=== PATIENT | female | born 1965 | race American Indian/Alaskan Native ===

== ENCOUNTER 2017-10-14 11:24 | Emergency (ER) | payer SELFPAY ==
[2017-10-14] MEDS ORDERED: MOTRIN PO ONE (17:43)
[2017-10-14] MEDS ORDERED: ZESTRIL ONE (17:49)
[2017-10-14] MEDS ORDERED: LOPRESSOR ONE (17:50)
[2017-10-14] MEDS ORDERED: ZESTRIL PO ONE (17:50)
[2017-10-14] MEDS ORDERED: LOPRESSOR PO ONE (17:50)
--- NOTE | 2017-10-14 19:08 | Emergency Department Report ---
ED Lower Extremity HPI - General Chief Complaint: Extremity Injury, Lower Stated Complaint: RT LEG PAIN Time Seen by Provider: 10/14/17 18:37 Source: patient Mode of arrival: Wheelchair Limitations: No Limitations - History of Present Illness Initial Comments: This is a 52-year-old -[place] female who presents with right lower extremity pain and numbness to right foot. Past medical history of hypertension. She states symptoms started last week and has progressed. Initially both feet were swollen last week. Patient states swelling has improved this week. Patient states pain is primarily in her right thigh but at times worse in right ankle and foot. She describes pain as a tingling sensation that is worse with movement. Patient denies swelling, deformity, erythema, recent injury. MD Complaint: ankle injury, foot injury Onset/Timin -: week(s) Injury: Thigh: Right, Ankle: Right, Foot: Right Type of Injury: unknown Place: home Severity: severe Severity scale (0 -10): 10 Improves With: nothing Worsens With: weight bearing, movement Associated Symptoms: swelling, able to partially bear weight, ambulatory. denies: snap/pop sensation, numbness, tingling, unable to bear weight Treatments Prior to Arrival: NSAIDS - Related Data Home Medications Medication Instructions Recorded Confirmed Last Taken Lisinopril [Zestril TAB] 10 mg PO QDAY 10/14/17 10/14/17 Unknown Metoprolol [Lopressor] 25 mg PO DAILY 10/14/17 10/14/17 Unknown Previous Rx's Medication Instructions Recorded Last Taken Type Cyclobenzaprine [Flexeril 10 MG 10 mg PO TID PRN #15 tablet 10/14/17 Unknown Rx TAB] Ibuprofen [Motrin 800 MG tab] 800 mg PO Q8HR PRN #15 tablet 10/14/17 Unknown Rx Allergies Allergy/AdvReac Type Severity Reaction Status Date / Time hydroxyzine [From Atarax] Allergy Hives Verified 10/14/17 11:31 ED Review of Systems ROS: Stated complaint: RT LEG PAIN Other details as noted in HPI Constitutional: denies: chills, fever Respiratory: denies: cough, shortness of breath, wheezing Cardiovascular: denies: chest pain, palpitations Gastrointestinal: denies: abdominal pain, nausea, diarrhea Musculoskeletal: arthralgia (right lower extremity pain). denies: back pain, joint swelling Skin: denies: rash, lesions Neurological: denies: headache, weakness, paresthesias Psychiatric: denies: anxiety, depression ED Past Medical Hx - Past Medical History Hx Hypertension: Yes - Surgical History Past Surgical History?: No - Social History Smoking Status: Never Smoker - Medications Home Medications: Home Medications Medication Instructions Recorded Confirmed Last Taken Type Cyclobenzaprine [Flexeril 10 MG 10 mg PO TID PRN #15 tablet 10/14/17 Unknown Rx TAB] Ibuprofen [Motrin 800 MG tab] 800 mg PO Q8HR PRN #15 tablet 10/14/17 Unknown Rx Lisinopril [Zestril TAB] 10 mg PO QDAY 10/14/17 10/14/17 Unknown History Metoprolol [Lopressor] 25 mg PO DAILY 10/14/17 10/14/17 Unknown History ED Physical Exam - General Limitations: No Limitations General appearance: alert, in no apparent distress - Respiratory Respiratory exam: Present: normal lung sounds bilaterally. Absent: respiratory distress - Cardiovascular Cardiovascular Exam: Present: regular rate, normal rhythm. Absent: systolic murmur, diastolic murmur, rubs, gallop - GI/Abdominal GI/Abdominal exam: Present: soft, normal bowel sounds - Expanded Lower Extremity Exam Right Hip exam: Present: normal inspection, full ROM Upper Leg exam: Present: normal inspection, full ROM Knee exam: Present: normal inspection, full ROM Lower Leg exam: Present: normal inspection, full ROM Ankle exam: Present: full ROM (painful ROM). Absent: tenderness, swelling, abrasion, laceration, ecchymosis, deformity, crepidus, dislocation, erythema, anterior draw sign Foot/Toe exam: Present: normal inspection, full ROM Neuro vascular tendon exam: Present: no vascular compromise Gait: Positive: observed and limited by pain - Back Exam Back exam: Present: paraspinal tenderness (paraspinal tenderness on the right). Absent: rash noted - Neurological Exam Neurological exam: Present: alert, oriented X3 - Psychiatric Psychiatric exam: Present: normal affect, normal mood - Skin Skin exam: Present: warm, dry, intact, normal color. Absent: rash ED Course Vital Signs 10/14/17 10/14/17 10/14/17 11:31 17:41 17:52 Temperature 98.7 F 98.0 F Pulse Rate 71 77 77 Respiratory 18 18 18 Rate Blood Pressure 190/90 203/107 203/107 O2 Sat by Pulse 100 100 Oximetry 10/14/17 17:53 Temperature Pulse Rate 77 Respiratory Rate Blood Pressure 203/107 O2 Sat by Pulse Oximetry ED Lower Extremity MDM - Radiology Data Radiology results: report reviewed, image reviewed FINAL REPORT PROCEDURE: XR SPINE LUMBOSACRAL 2-3V TECHNIQUE: Lumbosacral spine, AP and lateral views HISTORY: lower back pain COMPARISON: No prior studies are available for comparison. FINDINGS: No scoliosis. The vertebral body heights and alignment are maintained. Disc spaces are preserved. Vascular calcifications. IMPRESSION: No acute osseous abnormality is seen FINAL REPORT PROCEDURE: XR FOOT 3 VIEWS RIGHT TECHNIQUE: RIGHT foot radiographs, AP, lateral, and oblique views. CPT 52170 HISTORY: right foot pain/numbness COMPARISON: No prior studies are available for comparison. FINDINGS: No acute fracture or dislocation is seen. No focal osseous lesions. IMPRESSION: No acute fracture or dislocation is identified. - Medical Decision Making Patient was examined by myself in fast track. Blood pressure elevated on arrival and patient is in no acute distress. Obtained a urinalysis and x-rays of L-spine and right tibia-fibula. X-rays dictated by radiologist and no acute findings. Patient given pain medication while in the ER. Patient states she is feeling much better. Patient informed of results. On reevaluation her blood pressure trended down. Patient will follow-up with her primary care provider if family medical practice. Start ibuprofen and cyclobenzaprine for pain. Plan discussed with patient to discharge home and treat outpatient. She agrees with ER plan. Patient discharged home in stable condition. Follow up with PCP in 2-3 days. Critical care attestation.: If time is entered above; I have spent that time in minutes in the direct care of this critically ill patient, excluding procedure time. ED Disposition Clinical Impression: Right leg pain, Sciatica of right side, Asymptomatic hypertension Low back pain Qualifiers: Chronicity: acute Back pain laterality: bilateral Sciatica presence: with sciatica Sciatica laterality: sciatica of right side Qualified Code(s): M54.41 - Lumbago with sciatica, right side Disposition: TO HOME OR SELFCARE Is pt being admited?: No Does the pt Need Aspirin: No Condition: Stable Instructions: Sciatica (ED), Lumbar Radiculopathy (ED), Hypertension (ED) Additional Instructions: Rest Use ice or heat on affected area for 20 minutes and off for 2 hours. Take pain medication as needed for pain. Don't drive or operate heavy machinery while taking muscle relaxers because they may cause drowsiness. Follow up with Primary Care Provider in 2-3 days. Prescriptions: Cyclobenzaprine [Flexeril 10 MG TAB] 10 mg PO TID PRN #15 tablet PRN Reason: Muscle Spasm Ibuprofen [Motrin 800 MG tab] 800 mg PO Q8HR PRN #15 tablet PRN Reason: Pain , Severe (7-10) Referrals: [facility] [Provider Group] - 3-5 Days [facility] [Provider Group] - 3-5 Days Forms: Work/School Release Form(ED) Time of Disposition: 21:48 Print Language: IVORIAN
--- NOTE | 2017-10-14 21:13 | XRay Report ---
FINAL REPORT PROCEDURE: XR FOOT 3 VIEWS RIGHT TECHNIQUE: RIGHT foot radiographs, AP, lateral, and oblique views. CPT 20383 HISTORY: right foot pain/numbness COMPARISON: No prior studies are available for comparison. FINDINGS: No acute fracture or dislocation is seen. No focal osseous lesions. IMPRESSION: No acute fracture or dislocation is identified.
--- NOTE | 2017-10-14 21:14 | XRay Report ---
FINAL REPORT PROCEDURE: XR SPINE LUMBOSACRAL 2-3V TECHNIQUE: Lumbosacral spine, AP and lateral views HISTORY: lower back pain COMPARISON: No prior studies are available for comparison. FINDINGS: No scoliosis. The vertebral body heights and alignment are maintained. Disc spaces are preserved. Vascular calcifications. IMPRESSION: No acute osseous abnormality is seen
[2017-10-14] MEDS ORDERED: ULTRAM PO ONE (21:43)
[2017-10-14] MEDS ORDERED: ULTRAM ONE (21:46)
[2017-10-14 21:59] VITALS: BP 182/90
== END 2017-10-14 22:10 | disposition home or self-care (01) ==
LOC: ED 11:24
DX: M54.41 Lumbago with sciatica, right side (principal); I10 Essential (primary) hypertension; Z88.8 Allergy status to other drugs, medicaments and biological substances; X58.XXXA Exposure to other specified factors, initial encounter; Y93.89 Activity, other specified; Y99.8 Other external cause status; Y92.89 Other specified places as the place of occurrence of the external cause
CPT/HCPCS: 72100

== ENCOUNTER 2017-11-04 08:18 | Emergency (ER) | payer SELFPAY ==
[2017-11-04 08:41] VITALS: BP 153/98
--- NOTE | 2017-11-04 11:07 | Emergency Department Report ---
Chief Complaint: Extremity Injury, Lower Stated Complaint: FEET PAIN Time Seen by Provider: 11/04/17 10:40 - HPI History of Present Illness: Patient is a 52-year-old female who has past history of sciatica who is complaining of burning in her bilateral feet. There's been going on for 2-3 weeks. Patient states she believes she hasn't had insurance but it was dropped she tried to see her primary care physician was turned away. Patient has no injuries no fevers chills swelling to the bilateral feet. Patient states she doesn't feel as though she has an emergency however she didn' t know where else to go. - ROS Review of Systems: All other systems are negative and have been reviewed - Exam Vital Signs: Vital Signs 11/04/17 08:39 Temperature 98.0 F Pulse Rate 103 H Respiratory 18 Rate Blood Pressure 153/98 O2 Sat by Pulse 100 Oximetry Physical Exam: Focused physical exam patient's extremities showed no acute amount. Her feet have no swelling erythema and warmth and she is able to move with full range of motion. MSE screening note: Focused history and physical exam performed. Due to findings the following was ordered: ED Medical Decision Making - Medical Decision Making Patient is a 52-year-old [place] female who has some burning to the feet consistent with a neuropathy. Patient has been referred to [facility]. Patient is opted to not pale he 150 co-pay here in emergency department. ED Disposition for MSE Clinical Impression: Chronic pain Disposition: Z- MED SCREENING EXAM-LEFT Is pt being admited?: No Does the pt Need Aspirin: No Condition: Stable Referrals: PRIMARY CARE, [Primary Care Provider] - 3-5 Days
== END 2017-11-04 11:07 | disposition left against medical advice (07) ==
LOC: ED 08:18
DX: G89.29 Other chronic pain (principal); M79.672 Pain in left foot; M79.671 Pain in right foot; Z88.8 Allergy status to other drugs, medicaments and biological substances
CPT/HCPCS: 99282